=== PATIENT | male | born 1945 | race Caucasian/White ===

== ENCOUNTER → 2019-05-28 | Outpatient (CLI) | payer OTHER ==
--- NOTE | 2019-05-28 12:27 | 2DMMODE ---
[facility] [place] [address] 2 D/M-MODE ECHOCARDIOGRAM Name: KULWANT MIN Room #: REG [facility].#: [id number] Admission: 05/28/19 Attend Phys: Kaushik Grover MD Discharge: Date of : 47 Report #: [id number] THIS REPORT FOR: cc: Kaushik Grover MD, David A. MD Lundgren, Craig H. MD [facility] ~ THIS REPORT FOR: //name// APPROVED REPORT Study performed: 05/28/2019 10:53:18 EXAM: Comprehensive 2D, Doppler, and color-flow Echocardiogram Patient Location: Out-Patient Room #: Echo lab 2 Status: routine BSA: 2.31 HR: 87 bpm BP: 132/74 mmHg Rhythm: Atrial Fibrillation Other Information Study Quality: Good Indications Atrial Fibrillation 2D Dimensions RVDd: 29.90 mm IVSd: 8.43 (7-11mm) LVOT Diam: 21.70 (18-24mm) LVDd: 50.81 mm PWd: 8.86 (7-11mm) Ascending Ao: 33.51 (22-36mm) LVDs: 36.12 (25-40mm) Aortic Root: 37.95 mm IVC: 15.00 mm Volumes Left Atrial Volume (Systole) Single Plane 4CH: 100.48 mL Single Plane 2CH: 94.69 mL LA ESV Index: 48.00 mL/m2 Aortic Valve AoV Peak Satnam.: 1.36 m/s AO Peak Gr.: 7.40 mmHg LVOT Max P.64 mmHg LVOT Max V: 0.95 m/s [facility] [address] [address] 2 D/M-MODE ECHOCARDIOGRAM Name: KULWANT MIN Room #: REG [facility]#: [id number] Admission: 05/28/19 Attend Phys: Kaushik Grover MD Discharge: Date of : 47 Report #: [id number] Vmax: 2.59 cm2 Pulmonary Valve PV Peak Satnam.: 1.00 m/s PV Peak Gr.: 4.06 mmHg Tricuspid Valve TR Peak Satnam.: 2.68 m/s TR Peak Gr.: 28.77 mmHg PA Pressure: 34.00 mmHg Left Ventricle The left ventricle is normal size. There is normal LV segmental wall motion. There is normal left ventricular wall thickness. The left ventricular systolic function is normal. The left ventricular ejection fraction is within the normal range. LVEF is 55%. This study is not technically sufficient to allow evaluation of the LV diastolic function due to atrial fibrillation. Right Ventricle The right ventricle is normal size. The right ventricular systolic function is normal. Atria Left atrium is dilated. The right atrium size is normal. Aortic Valve The aortic valve is normal in structure. Trace aortic regurgitation. There is no aortic valvular stenosis. Mitral Valve The mitral valve is normal in structure. Mild mitral regurgitation. No evidence of mitral valve stenosis. Tricuspid Valve The tricuspid valve is normal in structure. There is mild tricuspid regurgitation. Estimated PAP 35 mmHg. Pulmonic Valve The pulmonary valve is normal in structure. Trace pulmonic regurgitation. Great Vessels The aortic root is normal in size. IVC is normal in size and collapses >50% with inspiration. Pericardium [facility] [address] [address] 2 D/M-MODE ECHOCARDIOGRAM Name: KULWANT MIN Room #: REG [facility]#: [id number] Admission: 05/28/19 Attend Phys: Kaushik Grover MD Discharge: Date of : 47 Report #: [id number] There is no pericardial effusion. <Conclusion> The left ventricular systolic function is normal. There is normal LV segmental wall motion. LVEF is 55%. Left atrium is dilated. The aortic valve is normal in structure. Trace aortic regurgitation, no stenosis. The mitral valve is normal in structure. Mild mitral regurgitation. There is mild tricuspid regurgitation. Estimated pulmonary artery pressure of 35 mmHg. There is no pericardial effusion. <ELECTRONICALLY SIGNED> By: Nima Otto MD, [facility] 05/28/19 1227 1227 1227 Nima Otto MD, FACC /INF
== END ==
LOC: CV 10:37
DX: I08.1 Rheumatic disorders of both mitral and tricuspid valves (principal); I48.91 Unspecified atrial fibrillation